=== PATIENT | female | born 1975 | race Two or more races ===

== ENCOUNTER 2017-07-31 21:34 | Inpatient (IN) | payer OTHER ==
[~2017-07-31] VITALS: Ht 154.9 cm; Wt 92.3 kg
[2017-07-31 22:29] LABS: HEMATOCRIT 43.1 % (34.6-47.8); HEMOGLOBIN 14.5 g/dL (11.7-16.4)
[2017-07-31] MEDS ORDERED: SODIUM CHLORIDE 0.9% 1,000ML IVBOLUS ONE (22:30)
[2017-07-31] MEDS ORDERED: ONDANSETRON 2MG/ML, 2ML IVPush ONE (22:30)
[2017-07-31 22:39] LABS: BLOOD UREA NITROGEN 13 mg/dL (7-18)
[2017-07-31] MEDS ORDERED: MORPHINE SULFATE 4 MG/ML, 1ML ONE ×2 (22:40→23:48)
[2017-07-31] MEDS ORDERED: ONDANSETRON 2MG/ML, 2ML ONE (22:40)
[2017-07-31 22:42] LABS: HCG UR LOT HCG706132
[2017-07-31 22:42] LABS: ASPARTATE AMINO TRANSFERASE 29 U/L (15-37)
[2017-07-31 22:50] LABS: PATH.CAST-FLAG NOT PRESENT; SPERM-FLAG NOT PRESENT; SRC-FLAG NOT PRESENT; XTAL-FLAG NOT PRESENT; YLC-FLAG NOT PRESENT
[2017-07-31 22:52] LABS: HCG UR OBC PASS
[2017-07-31] MEDS: MORPHINE SULFATE 4 MG/ML, 1ML IVPush PRN (23:03)
[2017-07-31] MEDS ORDERED: SODIUM CHLORIDE 0.9% 1,000 ML IV ONE (23:36)
[2017-07-31] MEDS ORDERED: PIPERACILLIN/TAZO/PMX 3.375GM 50 ML ONE (23:48)
[2017-08-01] MEDS ORDERED: MORPHINE SULFATE 4 MG/ML, 1ML IVPush PRN
[2017-08-01] MEDS ORDERED: PIPERACILLIN/TAZO/PMX 3.375GM 50 ML IVPB ONE
[2017-08-01] MEDS: MORPHINE SULFATE 4 MG/ML, 1ML IVPush PRN (00:02)
[2017-08-01 00:30] VITALS: BP 101/66
[2017-08-01 01:30] VITALS: BP 101/66
[2017-08-01] MEDS ORDERED: ONDANSETRON 2MG/ML, 2ML IVPush PRN ×3 (01:30→17:00)
[2017-08-01] MEDS ORDERED: D5%-0.9% NACL+KCL 20MEQ 1,000 ML IV SCH ×2 (01:30→07:30)
[2017-08-01] MEDS ORDERED: HYDROmorphone 2 MG/ML, 1ML ONE ×4 (02:37→17:57)
[2017-08-01] MEDS: HYDROmorphone 1 MG/ML, 1ML IV PRN ×3 (02:45→09:27)
[2017-08-01] MEDS ORDERED: CEFOTETAN PMX 2GM/50ML 50 ML IV SCH (07:30)
[2017-08-01 08:38] VITALS: BP 90/59
[2017-08-01] MEDS: FAMOTIDINE 20 MG/2 ML IVPush SCH ×2 (09:26→23:16)
[2017-08-01 12:33] LABS: BLOOD UREA NITROGEN 9 mg/dL (7-18)
[2017-08-01 13:30] VITALS: BP 96/59
[2017-08-01] MEDS ORDERED: FENTANYL PF 250 MCG/5ML ONE (14:23)
[2017-08-01] MEDS ORDERED: MIDAZOLAM 1 MG/ML, 2ML ONE (14:23)
[2017-08-01] MEDS ORDERED: FENTANYL PF 100 MCG/2ML ONE ×2 (14:27→19:04)
[2017-08-01] MEDS ORDERED: BUPIVACAINE/PF 0.5% ONE ×2 (15:36→18:26)
[2017-08-01] MEDS ORDERED: EPINEPHRINE 1 MG/ML, 1ML ONE ×2 (15:36→18:26)
[2017-08-01] MEDS ORDERED: GLYCOPYRROLATE 0.2MG/1ML, 5ML ONE (15:51)
[2017-08-01] MEDS ORDERED: ROCURONIUM 10 MG/ML,10ML ONE (15:51)
[2017-08-01] MEDS ORDERED: DEXAMETHASONE 4 MG/ML, 1ML ONE (15:51)
[2017-08-01] MEDS ORDERED: ONDANSETRON 2MG/ML, 2ML ONE (15:51)
[2017-08-01] MEDS ORDERED: NEOSTIGMINE 1 MG/ML, 10ML ONE (15:51)
[2017-08-01] MEDS ORDERED: PROPOFOL 10 MG/ML, 20ML ONE (15:51)
[2017-08-01] MEDS ORDERED: SUCCINYLCHOLINE 20 MG/ML, 10ML ONE (15:51)
[2017-08-01] MEDS ORDERED: LIDOCAINE GEL 2%, 5ML ONE (15:52)
[2017-08-01] MEDS ORDERED: CEFOTETAN PMX 2GM/50ML 50 ML ONE (16:06)
[2017-08-01] MEDS ORDERED: KETOROLAC 30 MG/1 ML ONE ×2 (16:37→19:40)
[2017-08-01] MEDS ORDERED: MEPERIDINE/PF 25MG/0.5ML IVPush PRN (17:00)
[2017-08-01] MEDS ORDERED: HYDROmorphone 1 MG/ML, 1ML IV PRN (17:00)
[2017-08-01] MEDS ORDERED: LABETALOL 5MG/ML, 20ML IV PRN (17:00)
[2017-08-01] MEDS ORDERED: ALBUTEROL/IPRATROPIUM 2.5MG/0.5MG, 3 ML NPPB PRN (17:00)
[2017-08-01] MEDS ORDERED: LORazepam 2 MG/ML, 1ML IVPush PRN (17:00)
[2017-08-01] MEDS ORDERED: ACETAMINOPHEN 325 MG TABLET PO PRN ×2 (17:00→23:30)
[2017-08-01] MEDS ORDERED: PROMETHAZINE 25 MG/ML, 1ML IV PRN (17:00)
[2017-08-01] MEDS ORDERED: MIDAZOLAM 1 MG/ML, 2ML IV PRN (17:00)
[2017-08-01] MEDS ORDERED: hydrALAzine 20 MG/ML, 1ML IV PRN ×2 (17:00→23:30)
[2017-08-01] MEDS ORDERED: OXYcodone 5 MG/5 ML ORAL.SOL UDC PO PRN (17:00)
[2017-08-01] MEDS ORDERED: DIAZEPAM 5 MG/ML, 2ML IVPush PRN (17:00)
[2017-08-01] MEDS ORDERED: KETAMINE 10 MG/ML, 20ML ONE (17:15)
[2017-08-01] MEDS ORDERED: OXYcodone 5 MG/5 ML ORAL.SOL UDC ONE (19:04)
[2017-08-01] MEDS: FENTANYL PF 100 MCG/2ML IV PRN ×2 (19:07→19:20)
[2017-08-01] MEDS ORDERED: MEPERIDINE/PF 50 MG/ML ONE (19:29)
[2017-08-01] MEDS ORDERED: KETOROLAC 30 MG/1 ML IVPush ONE (20:00)
[2017-08-01 20:30] VITALS: BP 98/64
[2017-08-01] MEDS ORDERED: DIPHENHYDRAMINE 25 MG CAPSULE PO PRN (23:30)
[2017-08-01] MEDS ORDERED: ONDANSETRON 2MG/ML, 2ML IV PRN (23:30)
[2017-08-01] MEDS ORDERED: DIPHENHYDRAMINE 50 MG/ML, 1ML IV PRN (23:30)
[2017-08-01] MEDS ORDERED: ACETAMINOPHEN 650 MG SUPP PR PRN (23:30)
[2017-08-02] MEDS: POTASSIUM CHLORIDE 20 MEQ in D5%-0.45% NACL 1,000 ML IV SCH ×3 (00:27→23:53)
[2017-08-02 00:31] VITALS: BP 91/57
[2017-08-02] MEDS: CEFOTETAN PMX 2GM/50ML 50 ML IVPB SCH ×2 (04:19→16:32)
[2017-08-02 06:08] LABS: HEMATOCRIT 33.6 % (34.6-47.8); HEMOGLOBIN 11.3 g/dL (11.7-16.4); WHITE BLOOD COUNT 11.8 x10^3/uL (3.4-10)
[2017-08-02 06:16] LABS: BLOOD UREA NITROGEN 10 mg/dL (7-18)
[2017-08-02] MEDS ORDERED: MORPHINE SULFATE 4 MG/ML, 1ML IVPush PRN (08:30)
[2017-08-02 08:33] VITALS: BP 93/60
[2017-08-02] MEDS: ENOXAPARIN 40 MG/0.4 ML SQ SCH (09:46)
[2017-08-02] MEDS ORDERED: SODIUM CHLORIDE 0.9%, 500ML IVBOLUS ONE (10:00)
[2017-08-02] MEDS: OXYcodone/APAP 5/325MG TABLET PO PRN ×3 (12:19→23:39)
[2017-08-02 16:01] VITALS: BP 98/66
[2017-08-02] MEDS: KETOROLAC 30 MG/1 ML IV PRN (19:47)
[2017-08-02 20:48] VITALS: BP 90/59
[2017-08-02 23:31] VITALS: BP 92/61
[2017-08-03 04:24] VITALS: BP 89/58
[2017-08-03] MEDS: POTASSIUM CHLORIDE 20 MEQ in D5%-0.45% NACL 1,000 ML IV SCH (08:15)
[2017-08-03] MEDS: KETOROLAC 30 MG/1 ML IV PRN (08:15)
[2017-08-03] MEDS: ENOXAPARIN 40 MG/0.4 ML SQ SCH (08:15)
[2017-08-03 08:22] VITALS: BP 92/60
[2017-08-03 13:19] VITALS: BP 96/65
[2017-08-03] MEDS: OXYcodone/APAP 5/325MG TABLET PO PRN ×2 (14:38→18:42)
[2017-08-03 20:17] VITALS: BP 98/64
[2017-08-03] MEDS: D5%-0.45NACL+KCL 20MEQ 1,000 ML IV SCH (23:30)
[2017-08-04] MEDS: OXYcodone/APAP 5/325MG TABLET PO PRN ×3 (00:51→15:18)
[2017-08-04 02:00] VITALS: BP 102/69
[2017-08-04 06:59] VITALS: BP 102/69
[2017-08-04] MEDS: D5%-0.45NACL+KCL 20MEQ 1,000 ML IV SCH ×2 (08:33→14:27)
[2017-08-04] MEDS: ENOXAPARIN 40 MG/0.4 ML SQ SCH (09:30)
[2017-08-04] MEDS ORDERED: BISACODYL 10 MG SUPP PR ONE (11:00)
[2017-08-04 14:23] VITALS: BP 105/70
[2017-08-04 20:27] VITALS: BP 100/58
[2017-08-05 01:52] VITALS: BP 96/52
[2017-08-05] MEDS: ENOXAPARIN 40 MG/0.4 ML SQ SCH (07:53)
[2017-08-05 09:20] VITALS: BP 96/66
[2017-08-05] MEDS ORDERED: OXYC-302 PO (11:28)
== END 2017-08-05 12:00 | disposition home or self-care (01) | DRG 415 ==
LOC: ED 23:30 → EDIP 23:37 → 4NOR 08-01 00:20
PROVIDERS: ADMIT Surgery; ATTEND Surgery
PROC: 0FJ44ZZ Inspection of Gallbladder, Percutaneous Endoscopic Approach (ICD-10-PCS; 2017-08-01)
PROC: 0FT40ZZ Resection of Gallbladder, Open Approach (ICD-10-PCS; principal; 2017-08-01 15:30)
DX: K80.12 Calculus of gallbladder with acute and chronic cholecystitis without obstruction (principal); E87.1 Hypo-osmolality and hyponatremia; K74.0 Hepatic fibrosis; N39.0 Urinary tract infection, site not specified; E66.9 Obesity, unspecified; K76.0 Fatty (change of) liver, not elsewhere classified; Z68.38 Body mass index [BMI] 38.0-38.9, adult; Z53.31 Laparoscopic surgical procedure converted to open procedure
CPT/HCPCS: 36415; 76700; 80048; 80053; 81001; 81025; 82040; 83690; 85025; 87086; 88304; 96374; 96375; 96376; C1729; J0171; J1100; J1170; J1650; J1885; J2175; J2250; J2270; J2405; J2543; J2704; J2710; J3010; J3480; J3490; J0330; J7030; J7040; S0028; S0074